=== PATIENT | male | born 1960 | race Caucasian/White ===

== ENCOUNTER → 2018-03-24 | Day surgery (SDC) | payer MEDICARE ==
[~2018-03-24] MED LIST: BUPIVACAINE HCL 0.5 % INJ/PF 30 ML SDV ONE; LIDOCAINE 1% INJ-PF (10 MG/ML) 30 ML SDV ONE; METHYLPREDNISOLONE ACETATE INJ 40 MG/1 ML ML ONE
--- NOTE | 2018-03-24 15:40 | RADIOLOGY REPORT (SQ) ---
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 LIMITATIONS: None. PROCEDURE: SITE OF INJECTION: Left hip LOCALIZING CONTRAST TYPE AND DOSE: 1 mL of Isovue-300 was injected to confirm intra-articular needle placement MEDICATION TYPE AND DOSE: 80 mg of Depo-Medrol, 6 mL of 0.5% bupivacaine Using local anesthesia and sterile technique with fluoroscopic guidance, the needle was advanced into the joint. Iodinated contrast was injected to verify intraarticular placement. This was followed by therapeutic injection of the indicated medications. The needle was removed. There were no immediat e complications. Preprocedure pain level: 6/10. Postprocedure pain level: 2/10. IMPRESSION: THERAPEUTIC INJECTION OF THE left hip JOINT ABOVE. COMMENT: Patient medication list reviewed: Yes- Quality ID# [id number]:Eligible professional attests to doc umenting in the medical record they obtained, updated, or reviewed the patient's current medications. . Quality ID 145: Final reports for procedures using fluoroscopy that document radiation exposure terra cuate, or exposure time and number of fluorographic images (if radiation exposure indices are not avail able) TECHNICAL DOCUMENTATION: JOB ID: [id number] [employer]- All Rights Reserved Reading location - IP/workstation name: [email or web address]
--- NOTE | 2018-03-24 15:40 | RADIOLOGY REPORT (SQ) ---
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 LIMITATIONS: None. PROCEDURE: SITE OF INJECTION: Left hip LOCALIZING CONTRAST TYPE AND DOSE: 1 mL of Isovue-300 was injected to confirm intra-articular needle placement MEDICATION TYPE AND DOSE: 80 mg of Depo-Medrol, 6 mL of 0.5% bupivacaine Using local anesthesia and sterile technique with fluoroscopic guidance, the needle was advanced into the joint. Iodinated contrast was injected to verify intraarticular placement. This was followed by therapeutic injection of the indicated medications. The needle was removed. There were no immediat e complications. Preprocedure pain level: 6/10. Postprocedure pain level: 2/10. IMPRESSION: THERAPEUTIC INJECTION OF THE left hip JOINT ABOVE. COMMENT: Patient medication list reviewed: Yes- Quality ID# [id number]:Eligible professional attests to doc umenting in the medical record they obtained, updated, or reviewed the patient's current medications. . Quality ID 145: Final reports for procedures using fluoroscopy that document radiation exposure terra cuate, or exposure time and number of fluorographic images (if radiation exposure indices are not avail able) TECHNICAL DOCUMENTATION: JOB ID: [id number] [employer]- All Rights Reserved Reading location - IP/workstation name: [email or web address]
== END ==
LOC: RAD 13:15
PROVIDERS: ATTEND Orthopaedic Surgery
DX: M16.12 Unilateral primary osteoarthritis, left hip (principal)
CPT/HCPCS: 20610; 77002; J3490 ×2; J1020

== ENCOUNTER → 2018-06-23 | Outpatient (CLI) | payer MEDICARE ==
[~2018-06-23] MED LIST changes: -BUPIVACAINE HCL 0.5 % INJ/PF 30 ML SDV ONE; +DIAZEPAM 2 MG TABLET ONE; -LIDOCAINE 1% INJ-PF (10 MG/ML) 30 ML SDV ONE; -METHYLPREDNISOLONE ACETATE INJ 40 MG/1 ML ML ONE
== END ==
LOC: RAD 12:37
PROVIDERS: ATTEND Physician Assistant
DX: Z53.09 Procedure and treatment not carried out because of other contraindication (principal); F40.240 Claustrophobia
CPT/HCPCS: 82565; A9270; J3490

== ENCOUNTER 2019-07-15 15:09 | Emergency (ER) | payer MEDICARE ==
[2019-07-15] MEDS ORDERED: NORMAL SALINE 1000 ML 1,000 ML IV ONE ×2 (15:34→17:41)
--- NOTE | 2019-07-15 15:37 | ER Document Report ---
ED Medical Screen (RME) - General Chief Complaint: High Blood Sugar Stated Complaint: ABNORMAL LABS Time Seen by Provider: 07/15/19 15:27 Primary Care Provider: STEPHANIE LOPEZ PA-C [Primary Care Provider] - Follow up as needed Notes: Patient is a 58-year-old male who presents to the emergency department after going to his doctor's office and his blood sugar was greater than 700. He was sent to the emergency department. Patient states that he had been feeling sluggish and that is why he had his labs drawn. Patient has also had a cough for the past few days. Patient has a past medical history of musculoskeletal surgeries and a myocardial infarction with stent placement. Exam: Coarse right upper lobe lung sounds, cough noted, blood sugar high on Accu-Chek machine. I have greeted and performed a rapid initial assessment of this patient. A comprehensive ED assessment and evaluation of the patient, analysis of test results and completion of medical decision making process will be conducted by an additional ED providers. TRAVEL OUTSIDE OF THE [place] IN LAST 30 DAYS: No - Related Data Allergies/Adverse Reactions: No Known Allergies Allergy (Verified 07/15/19 15:28) Past Medical History - Social History Chew tobacco use (# tins/day): No Frequency of alcohol use: None Drug Abuse: None Physical Exam - Vital signs Vitals: Temp Pulse Resp BP Pulse Ox 97.4 F 69 19 157/79 H 96 07/15/19 15:21 07/15/19 15:21 07/15/19 15:21 07/15/19 15:21 07/15/19 15:21 Course - Vital Signs Vital signs: Temp Pulse Resp BP Pulse Ox 97.4 F 69 19 157/79 H 96 07/15/19 15:21 07/15/19 15:21 07/15/19 15:21 07/15/19 15:21 07/15/19 15:21 Doctor's Discharge - Discharge Referrals: STEPHANIE LOPEZ PA-C [Primary Care Provider] - Follow up as needed
[2019-07-15 16:01] LABS: ABSOLUTE BASOPHILS # (AUTO) 0.1 10^3/uL (0.0-0.2); ABSOLUTE EOSINOPHILS # (AUTO) 0.1 10^3/uL (0.0-0.6); ABSOLUTE LYMPHOCYTES (AUTO) 1.8 10^3/uL (0.5-4.7); ABSOLUTE MONOCYTES (AUTO) 0.4 10^3/uL (0.1-1.4); ABSOLUTE NEUT (AUTO) 2.9 10^3/uL (1.7-8.2); BASOPHILS % (AUTO) 1.2 % (0-2); EOSINOPHILS % (AUTO) 2.3 % (0-6); HEMATOCRIT 42.8 % (37.9-51.0); HEMOGLOBIN 14.9 g/dL (13.5-17.0); LYMPHOCYTES % (AUTO) 34.8 % (13-45); MEAN CORPUSCULAR HGB CONC 34.7 g/dL (32.0-36.0); MEAN CORPUSCULAR VOLUME 90 fl (80-97); MONOCYTES % (AUTO) 7.1 % (3-13); PLATELET COUNT 102 10^3/uL (150-450); RED BLOOD COUNT 4.79 10^6/uL (4.35-5.55); RED CELL DISTRIBUTION WIDTH 12.8 % (11.5-14.0); SEGMENTED NEUTROPHILS % (AUTO) 54.6 % (42-78); TOTAL CELLS COUNTED % (AUTO) 100 %; WHITE BLOOD COUNT 5.3 10^3/uL (4.0-10.5)
[2019-07-15 16:04] LABS: APPEARANCE,URINE CLEAR; BILIRUBIN,URINE NEGATIVE (NEGATIVE); COLOR,URINE COLORLESS; GLUCOSE, URINE >=500 mg/dL (NEGATIVE); KETONES,URINE NEGATIVE (NEGATIVE); LEUKOCYTE ESTERASE,URINE NEGATIVE (NEGATIVE); NITRITE,URINE NEGATIVE (NEGATIVE); PROTEIN,URINE NEGATIVE (NEGATIVE); URINE SPECIFIC GRAVITY 1.031; UROBILINOGEN,URINE NEGATIVE mg/dL (<2.0)
--- NOTE | 2019-07-15 16:35 | RADIOLOGY REPORT (SQ) ---
EXAM DESCRIPTION: CHEST SINGLE VIEW COMPLETED DATE/TIME: 07/15/2019 4:18 pm REASON FOR STUDY: cough COMPARISON: None. EXAM PARAMETERS: NUMBER OF VIEWS: One view. TECHNIQUE: Single frontal radiographic view of the chest acquired. RADIATION DOSE: NA LIMITATIONS: None. FINDINGS: LUNGS AND PLEURA: No opacities, masses or pneumothorax. No pleural effusion. MEDIASTINUM AND HILAR STRUCTURES: No masses. Contour normal. HEART AND VASCULAR STRUCTURES: Heart normal in size. Normal vasculature. BONES: No acute findings. HARDWARE: None in the chest. OTHER: No other significant finding. IMPRESSION: NO ACUTE RADIOGRAPHIC FINDING IN THE CHEST. TECHNICAL DOCUMENTATION: JOB ID: [id number] [employer]- All Rights Reserved Reading location - IP/workstation name: [email or web address]
[2019-07-15 16:53] LABS: ALBUMIN 4.4 g/dL (3.5-5.0); ALKALINE PHOSPHATASE 99 U/L (38-126); ANION GAP 13 (5-19); ASPARTATE AMINO TRANSFERASE 57 U/L (17-59); BILIRUBIN,DIRECT 0.3 mg/dL (0.0-0.4); BILIRUBIN,TOTAL 0.7 mg/dL (0.2-1.3); BLOOD UREA NITROGEN 7 mg/dL (7-20); CALCIUM 9.6 mg/dL (8.4-10.2); CARBON DIOXIDE 28 mmol/L (22-30); CHLORIDE 96 mmol/L (98-107); CREATINE KINASE 51 U/L (55-170); TOTAL PROTEIN 7.2 g/dL (6.3-8.2)
[2019-07-15 17:05] LABS: GLUCOSE 630 mg/dL (75-110)
[2019-07-15 17:32] LABS: VENOUS BLOOD BASE EXCESS -2.6 mmol/L; VENOUS BLOOD HCO3 22.8 mmol/L (20-32); VENOUS BLOOD PCO2 41.6 mmHg (35-63); VENOUS BLOOD PH 7.36 (7.30-7.42)
--- NOTE | 2019-07-15 18:30 | EKG REPORT ---
SEVERITY:- ABNORMAL ECG - SINUS RHYTHM RIGHT BUNDLE BRANCH BLOCK INFERIOR INFARCT, AGE INDETERMINATE : Confirmed by: Santo Rai MD 15-Jul-2019 18:30:01
--- NOTE | 2019-07-15 18:30 | ER Document Report ---
ED General - General Chief Complaint: High Blood Sugar Stated Complaint: ABNORMAL LABS Time Seen by Provider: 07/15/19 15:27 Primary Care Provider: STEPHANIE LOPEZ PA-C [Primary Care Provider] - Follow up as needed Mode of Arrival: Ambulatory Information source: Patient Notes: Patient is a 58-year-old male presenting to the emergency department from his primary care provider's office with complaints of hyperglycemia. Patient does not have a history of diabetes that has been diagnosed. Patient reports he was seen at his doctor's office today for fatigue, increased thirst and increased urination. Patient reports they did labs and found his blood sugar to be 700. Patient reports that his primary care provider gave him 15 units of insulin glargine and 0.75 units of Trulicity prior to coming to the emergency department. He denies any recent illness to include nausea, vomiting, diarrhea or fever. TRAVEL OUTSIDE OF THE [place] IN LAST 30 DAYS: No - Related Data Allergies/Adverse Reactions: No Known Allergies Allergy (Verified 07/15/19 15:28) Past Medical History - General Information source: Patient - Social History Smoking Status: Never Smoker Chew tobacco use (# tins/day): No Frequency of alcohol use: None Drug Abuse: None Family History: Reviewed & Not Pertinent Patient has suicidal ideation: No Patient has homicidal ideation: No - Past Medical History Cardiac Medical History: Reports: Hx Coronary Artery Disease, Hx Hypertension Endocrine Medical History: Reports: Hx Diabetes Mellitus Type 2 - New 06/2019 Past Surgical History: Reports: Hx Cardiac Surgery - Stent placement - Immunizations Immunizations up to date: Yes Review of Systems - Review of Systems Constitutional: Malaise, Other - Polydipsia, polyuria, Weight loss EENT: No symptoms reported Cardiovascular: No symptoms reported Respiratory: No symptoms reported Gastrointestinal: No symptoms reported Genitourinary: No symptoms reported Male Genitourinary: No symptoms reported Musculoskeletal: No symptoms reported Skin: No symptoms reported Hematologic/Lymphatic: No symptoms reported Neurological/Psychological: No symptoms reported Physical Exam - Vital signs Vitals: Temp Pulse Resp BP Pulse Ox 97.4 F 69 19 157/79 H 96 07/15/19 15:21 07/15/19 15:21 07/15/19 15:21 07/15/19 15:21 07/15/19 15:21 - Notes Notes: PHYSICAL EXAMINATION: GENERAL: Well-appearing, well-nourished and in no acute distress. HEAD: Atraumatic, normocephalic. EYES: Pupils equal round and reactive to light, extraocular movements intact, sclera anicteric, conjunctiva are normal. ENT: Nares patent, oropharynx clear without exudates. Moist mucous membranes. NECK: Normal range of motion, supple without lymphadenopathy LUNGS: Breath sounds clear to auscultation bilaterally and equal. No wheezes rales or rhonchi. HEART: Regular rate and rhythm without murmurs ABDOMEN: Soft, nontender, nondistended abdomen. No guarding, no rebound. No masses appreciated. Musculoskeletal: Normal range of motion, no pitting or edema. No cyanosis. NEUROLOGICAL: Cranial nerves grossly intact. Normal speech, normal gait. Normal sensory, motor exams PSYCH: Normal mood, normal affect. SKIN: Warm, Dry, normal turgor, no rashes or lesions noted. Course - Re-evaluation Re-evalutation: Patient appears well, nontoxic is alert, oriented and answering all questions appropriately. His physical examination is unremarkable. He has not had any vomiting or recent illness. He presents from his doctor's office for new onset diabetes. Lab work-up was initiated. Patient does have elevated glucose however there is no evidence of diabetic ketoacidosis. He was given insulin by his primary care provider prior to coming to the emergency department which is why I did not give any additional insulin. He was given a 2 L fluid bolus which brought his blood sugar down from the 600s to the high 200s. He will be discharged home, he has an appointment tomorrow to follow-up with his primary care provider for diabetic teaching and to initiate all medications. The patient's emergency department workup and current diagnosis were explained to the patient and or family. Follow-up instructions were provided. Medications if prescribed were discussed. Instructions for when to return to the emergency department including specific worrisome symptoms were discussed with the patient and/or family. - Vital Signs Vital signs: Temp Pulse Resp BP Pulse Ox 97.4 F 69 10 L 151/85 H 99 07/15/19 15:21 07/15/19 15:21 07/15/19 19:01 07/15/19 19:01 07/15/19 19:01 - Laboratory Result Diagrams: 07/15/19 15:44 07/15/19 15:44 Laboratory results interpreted by me: 07/15/19 07/15/19 07/15/19 01:11 15:44 15:44 Plt Count 102 L Sodium 136.8 L Chloride 96 L Glucose 630 H* POC Glucose > 550 H* Hemoglobin A1c % Creatine Kinase 51 L Urine Glucose (UA) Urine Blood 07/15/19 07/15/19 07/15/19 15:44 15:44 18:59 Plt Count Sodium Chloride Glucose POC Glucose 342 H Hemoglobin A1c % 12.2 H Creatine Kinase Urine Glucose (UA) >=500 H Urine Blood SMALL H Discharge - Discharge Clinical Impression: Hyperglycemia, Polydipsia, Polyuria Condition: Stable Disposition: HOME, SELF-CARE Additional Instructions: You were seen in the emergency department today with concern for elevated blood sugar. We did a thorough evaluation here and while your blood sugar was elevated there was no evidence you are in any life-threatening danger. There was no evidence of diabetic ketoacidosis. You were given 2 L of IV fluids and your blood sugar did come down some. We did not give you any additional insulin as you had already received 2 types of insulin at your doctor's office. It is very important that you keep the follow-up for tomorrow with your primary care provider. They will need to start you on the appropriate diabetic medications and do diabetic teaching with you and your . Please return to the emergency department for any new or worsening symptoms. Referrals: STEPHANIE LOPEZ PA-C [Primary Care Provider] - Follow up as needed
[2019-07-15 19:15] VITALS: BP 151/85
== END 2019-07-15 19:36 | disposition home or self-care (01) ==
LOC: ER 15:09
DX: E11.65 Type 2 diabetes mellitus with hyperglycemia (principal); R63.1 Polydipsia; R35.8 Other polyuria; I25.10 Atherosclerotic heart disease of native coronary artery without angina pectoris; I10 Essential (primary) hypertension
CPT/HCPCS: 93005; 36415; 82553; 82962; 82550; 85025; 80053; 81001; 83036; 82803; 71045; 93010; J7030

== ENCOUNTER 2020-11-01 09:40 | Observation (INO) | payer MEDICARE ==
--- NOTE | 2020-11-01 10:22 | ER Document Report ---
ED Medical Screen (RME) - General Stated Complaint: CHEST PAIN Time Seen by Provider: 11/01/20 10:17 Primary Care Provider: STEPHANIE LOPEZ PA-C [Primary Care Provider] - Follow up as needed Mode of Arrival: Ambulatory Information source: Patient Notes: HPI; 60-year-old male past medical history significant for an FL with 4 stents presents to the emergency room complaining of worsening chest pain that has been intermittent since yesterday. Tried belching without relief. States pain is midsternal describes it as a pressure. No nausea, no vomiting, no diaphoresis. PE: Alert and oriented x3. Lungs: Clear to auscultation without rales, rhonchi, wheezes. Heart: Regular rate rhythm without murmurs, rubs, gallops. I have greeted and performed a rapid initial assessment of this patient. A comprehensive ED assessment and evaluation of the patient, analysis of test results and completion of the medical decision making process will be conducted by additional ED providers. I have specifically instructed the patient or family members with the patient to immediately return to any nursing staff should anything change in the patient's condition or with their chief complaint. TRAVEL OUTSIDE OF THE [place] IN LAST 30 DAYS: No - Related Data Allergies/Adverse Reactions: No Known Allergies Allergy (Verified 11/01/20 10:16) Past Medical History - Past Medical History Cardiac Medical History: Reports: Hx Coronary Artery Disease, Hx Hypertension Endocrine Medical History: Reports: Hx Diabetes Mellitus Type 2 - New 06/2019 Past Surgical History: Reports: Hx Cardiac Surgery - Stent placement - Immunizations Immunizations up to date: Yes Physical Exam - Vital signs Vitals: Temp Pulse Resp BP Pulse Ox 98.3 F 72 18 164/86 H 96 11/01/20 10:00 11/01/20 10:00 11/01/20 10:11/01/20 10:00 11/01/20 10:00 Course - Vital Signs Vital signs: Temp Pulse Resp BP Pulse Ox 98.3 F 72 18 164/86 H 96 11/01/20 10:00 11/01/20 10:00 11/01/20 10:00 11/01/20 10:00 11/01/20 10:00 Doctor's Discharge - Discharge Referrals: STEPHANIE LOPEZ PA-C [Primary Care Provider] - Follow up as needed
--- NOTE | 2020-11-01 11:43 | RADIOLOGY REPORT (SQ) ---
EXAM DESCRIPTION: CHEST SINGLE VIEW IMAGES COMPLETED DATE/TIME: 11/01/2020 10:18 am REASON FOR STUDY: chest pain COMPARISON: 07/15/2019 EXAM PARAMETERS: NUMBER OF VIEWS: One view. TECHNIQUE: Single frontal radiographic view of the chest acquired. RADIATION DOSE: NA LIMITATIONS: None. FINDINGS: LUNGS AND PLEURA: No opacities, masses or pneumothorax. No pleural effusion. MEDIASTINUM AND HILAR STRUCTURES: No masses. Contour normal. HEART AND VASCULAR STRUCTURES: Heart normal in size. Normal vasculature. BONES: No acute findings. HARDWARE: None in the chest. OTHER: No other significant finding. IMPRESSION: NO ACUTE RADIOGRAPHIC FINDING IN THE CHEST. TECHNICAL DOCUMENTATION: JOB ID: [id number] [employer]- All Rights Reserved Reading location - IP/workstation name: [id number]
[2020-11-01 11:47] LABS: ALBUMIN 4.1 g/dL (3.5-5.0); ALKALINE PHOSPHATASE 73 U/L (38-126); ANION GAP 6 (5-19); ASPARTATE AMINO TRANSFERASE 54 U/L (17-59); BILIRUBIN,DIRECT 0.2 mg/dL (0.0-0.4); BILIRUBIN,TOTAL 0.6 mg/dL (0.2-1.3); BLOOD UREA NITROGEN 11 mg/dL (7-20); CALCIUM 9.3 mg/dL (8.4-10.2); CARBON DIOXIDE 29 mmol/L (22-30); CHLORIDE 105 mmol/L (98-107); CREATINE KINASE 47 U/L (55-170); GLUCOSE 166 mg/dL (75-110); POTASSIUM 3.8 mmol/L (3.6-5.0); TOTAL PROTEIN 7.3 g/dL (6.3-8.2)
[2020-11-01 12:01] LABS: CREATINE KINASE MB 0.75 ng/mL (<4.55)
[2020-11-01 12:09] LABS: TROPONIN I < 0.012 ng/mL
--- NOTE | 2020-11-01 14:49 | ER Document Report ---
ED General - General Chief Complaint: Chest Pain Stated Complaint: CHEST PAIN Time Seen by Provider: 11/01/20 10:17 Mode of Arrival: Ambulatory TRAVEL OUTSIDE OF THE [place] IN LAST 30 DAYS: No - HPI Notes: Patient is a 60-year-old male who presents to emergency department for evalu ation of chest pain. He describes it as sharp. He states he woke yesterday with it. It was present for about a half an hour. He was able to belch and it improved. He says it is in the substernal and left lower chest. It does not radiate. He denies any associated shortness of breath, nausea, diaphoresis, near syncope. He does have a history of SD, he states that his SD felt like indigestion in the past, he is really unsure as to whether or not this feels similar. Patient has been taking medications as prescribed. He has an appointment with cardiology on the 18th of this month. He cannot tell me when his last stress test or heart catheterization wants. - Related Data Allergies/Adverse Reactions: No Known Allergies Allergy (Verified 11/01/20 11:42) Home Medications: lipitor, meloxicam,omeprazole -states he is on 13 different medications and cannot tell me any more of them Past Medical History - General Information source: Patient - Social History Smoking Status: Former Smoker Chew tobacco use (# tins/day): No Drug Abuse: None Family History: Reviewed & Not Pertinent - Past Medical History Cardiac Medical History: Reports: Hx Coronary Artery Disease, Hx Heart Attack, Hx Hypercholesterolemia, Hx Hypertension Endocrine Medical History: Reports: Hx Diabetes Mellitus Type 2 - New 06/2019 Musculoskeletal Medical History: Reports Hx Arthritis Past Surgical History: Reports: Hx Cardiac Surgery - Stent placement - Immunizations Immunizations up to date: Yes Review of Systems - Review of Systems Constitutional: No symptoms reported EENT: No symptoms reported Cardiovascular: See HPI Respiratory: No symptoms reported Gastrointestinal: See HPI Genitourinary: No symptoms reported Musculoskeletal: No symptoms reported Skin: No symptoms reported Neurological/Psychological: No symptoms reported Physical Exam - Vital signs Vitals: Temp Pulse Resp BP Pulse Ox 98.3 F 72 18 164/86 H 96 11/01/20 10:00 11/01/20 10:00 11/01/20 10:00 11/01/20 10:11/01/20 10:00 - Notes Notes: Vital signs reviewed, please refer to chart. Head is normocephalic, atraumatic. Pupils equal round, reactive to light. Neck is supple without meningismus. Heart is regular rate and rhythm. Lungs are clear to auscultation bilaterally. Abdomen is soft, nontender, normoactive bowel sounds throughout. Extremities without cyanosis, clubbing. Posterior calves are nontender. Peripheral pulses are equal. Skin is warm and dry. Patient is awake, alert, neurological exam is nonfocal. Course - Re-evaluation Re-evalutation: 11/01/20 14:48 Patient presents to the emergency department for evaluation. Laboratory investigations, EKG, imaging are as ordered. Patient is chest pain-free at the time of my evaluation. He states he had an episode of chest pain while here that lasted about 15 minutes, but belching seem to make it go away. I explained to the patient that he needs to notify us immediately if his pain returns and he voiced understanding. Otherwise, patient's cardiac enzymes revealed negative troponin x2. It turns out in regards to his CBC he is a "clump were" per the lab and another set will need to be redrawn. Patient does follow with [facility] cardiology. I will contact Dr. Powell for further guidance. 11/01/20 17:[address] Powell. He recommends that the [facility]. He asked that I contact internal medicine for admission, and that they contact him for more details in regards to this patient's history and further management. I spoke with Dr. Jordan, who will call Dr. Powell regarding this patient. Aspirin is ordered. 11/01/20 18:54 Patient remained stable. There are admission orders placed by the internal medicine team. - Vital Signs Vital signs: Temp Pulse Resp BP Pulse Ox 98.3 F 72 22 H 192/107 H 97 11/01/20 10:00 11/01/20 10:00 11/01/20 17:09 11/01/20 13:01 11/01/20 17:09 - Laboratory Results Result Diagrams: 11/01/20 15:42 11/01/20 11:20 Laboratory Results Interpreted: 11/01/20 11:20 Creatinine 0.48 L Glucose 166 H ALT 52 H Creatine Kinase 47 L Critical Laboratory Results Reviewed: No Critical Results - Radiology Results Radiology Results Interpreted: 11/01/20 14:49 Chest X-Ray 11/01/20 10:33 IMPRESSION: NO ACUTE RADIOGRAPHIC FINDING IN THE CHEST. Critical Radiology Results Reviewed: No Critical Results - EKG Interpretation by Me Additional EKG results interpreted by me: 11/01/20 18:54 Sinus mechanism with a rate of 62 bpm. Normal axis. Right bundle branch block. Nonspecific ST changes, but no acute changes concerning for ischemia or infarction. Discharge - Discharge Clinical Impression: Chest pain Qualifiers: Chest pain type: chest pain due to myocardial ischemia Ischemic chest pain type: other angina pectoris type Qualified Code(s): I20.8 - Other forms of angina pectoris Condition: Stable Disposition: ADMITTED OBSERVATION Admitting Provider: Jeri (Hospitalist) Unit Admitted: Telemetry
[2020-11-01 16:04] LABS: ABSOLUTE BASOPHILS # (AUTO) 0.1 10^3/uL (0.0-0.2); ABSOLUTE EOSINOPHILS # (AUTO) 0.2 10^3/uL (0.0-0.6); ABSOLUTE LYMPHOCYTES (AUTO) 2.4 10^3/uL (0.5-4.7); ABSOLUTE MONOCYTES (AUTO) 0.5 10^3/uL (0.1-1.4); ABSOLUTE NEUT (AUTO) 3.8 10^3/uL (1.7-8.2); BASOPHILS % (AUTO) 0.8 % (0-2); EOSINOPHILS % (AUTO) 2.5 % (0-6); HEMATOCRIT 40.1 % (37.9-51.0); HEMOGLOBIN 14.2 g/dL (13.5-17.0); LYMPHOCYTES % (AUTO) 34.5 % (13-45); MEAN CORPUSCULAR HEMOGLOBIN 30.9 pg (27.0-33.4); MEAN CORPUSCULAR HGB CONC 35.3 g/dL (32.0-36.0); MEAN CORPUSCULAR VOLUME 87 fl (80-97); MONOCYTES % (AUTO) 6.7 % (3-13); RED BLOOD COUNT 4.59 10^6/uL (4.35-5.55); RED CELL DISTRIBUTION WIDTH 13.1 % (11.5-14.0); SEGMENTED NEUTROPHILS % (AUTO) 55.5 % (42-78); TOTAL CELLS COUNTED % (AUTO) 100 %; WHITE BLOOD COUNT 6.9 10^3/uL (4.0-10.5)
[2020-11-01] MEDS ORDERED: ASPIRIN 81 MG TABLET, CHEWABLE PO ONE (17:13)
--- NOTE | 2020-11-01 17:46 | Progress Note ---
Provider Note Provider Note: I was contacted by the ER physician regarding this patient. He will be admitted for cardiac observation and stress test in the morning for risk stratification. The following is his last office note dated MAY 15: 59-year-old male with coronary artery disease status post inferior STEMI on 08/11/17 treated with 4 drug-eluting stents to the RCA and nonobstructive/small vessel disease in other vascular distributions, ischemic cardiomyopathy with an ejection fraction of 40-45% with inferior wall hypokinesis, hypertension, hyperlipidemia and marijuana use returns to the office for follow-up on coronary artery disease, ischemic myopathy, hypertension and hyperlipidemia. Since the prior visit the patient has remained hemodynamically stable and without ischemic or heart failure symptoms. He lost 6 pounds. He continues to be sedentary due to his significant back and pain. He was found to have a fusiform infrarenal abdominal aortic aneurysm measuring 4.5 cm x 4.2 cm that does not involve the iliac bifurcation and contains calcific plaque and a small aortic root aneurysm measuring 4.1 cm. He was seen by Dr. Octavio Hendrix a few weeks ago who recommended follow-up in 6 months and possible surgical repair when aneurysm reaches 5.0 cm. his nuclear stress test in September 2018 demonstrated a scar in the RCA distribution but no active ischemia. Allergies No Known Drug Allergies Current Meds 1. Aspirin 81 MG Oral Tablet Delayed Release; TAKE 1 TABLET DAILY 2. Atorvastatin Calcium 40 MG Oral Tablet; TAKE 1 TABLET BY MOUTH EVERY DAY 3. Benzonatate 200 MG Oral Capsule; TAKE ONE CAPSULE BY MOUTH THREE TIMES DAILY NEEDED FOR COUGH 4. Carvedilol 12.5 MG Oral Tablet; TAKE 1 TABLET BY MOUTH TWICE DAILY 5. Cetirizine HCl - 10 MG Oral Tablet; TAKE ONE TABLET BY MOUTH ONCE EVERY DAY DIRECTED FOR ALLERGY SYMPTOMS 6. Ezetimibe 10 MG Oral Tablet; TAKE 1 TABLET BY MOUTH ONCE DAILY 7. FORA Blood Glucose Test In Vitro Strip; TEST 3 TIMES DAILY 8. FORA D10 2-in-1 Monitor Device; USE DIRECTED 9. FORA Lancets; USE DIRECTED 10. FORA Lancing Device; USE DIRECTED 11. Lisinopril 10 MG Oral Tablet; TAKE 1 TABLET DAILY DIRECTED 12. Loratadine 10 MG Oral Tablet; TAKE 1 TABLET DAILY 13. Meloxicam 7.5 MG Oral Tablet; Take 1 tablet by mouth once daily 14. metFORMIN HCl ER 500 MG Oral Tablet Extended Release 24 Hour; TAKE 1 TABLET BY MOUTH DAILY DIRECTED 15. Methocarbamol 750 MG Oral Tablet; TAKE 1 TABLET TWICE DAILY PRN 16. Nitroglycerin 0.4 MG Sublingual Tablet Sublingual; DISSOLVE 1 TABLET UNDER TONGUE NEEDED FORCHEST PAIN EVERY 5 MINUTES UP TO 3 DOSES 17. Omeprazole 40 MG Oral Capsule Delayed Release; TAKE 1 CAPSULE BY MOUTH TWICE DAILY 18. OneTouch Verio In Vitro Strip; TEST BLOOD SUGAR 3 TIMES DAILY 19. Tresiba FlexTouch 100 UNIT/ML Subcutaneous Solution Pen-injector; INJECT 15 UNIT BEDTIME 20. Trulicity 0.75 MG/0.5ML Subcutaneous Solution Pen-injector; inject 0.75 mg weekly - SAMPLE GIVEN TO PATIENT 21. Xarelto 2.5 MG Oral Tablet; Take one tablet by mouth daily Active Problems 1. Arteriosclerosis of coronary artery (414.00) (I25.10) 2. Arthritis (716.90) (M19.90) 3. Back pain, lumbosacral (724.2,724.6) (M54.5) 4. Cardiomyopathy, ischemic (414.8) (I25.5) 5. Colonoscopy (Fiberoptic) Screening 6. Coronary artery disease (414.00) (I25.10) 7. Diabetes (250.00) (E11.9) 8. Encounter for long-term (current) use of medications (V58.69) (Z79.899) 9. Former smoker (V15.82) (Z87.891) 10. Gastrointestinal bleeding (578.9) (K92.2) 11. HTN (hypertension) (401.9) (I10) 12. Hyperlipidemia, mixed (272.2) (E78.2) 13. Left hip pain (719.45) (M25.552) 14. Multiple joint pain (719.49) (M25.50) 15. Polydipsia (783.5) (R63.1) 16. Polyuria (788.42) (R35.8) 17. Screening PSA (prostate specific antigen) (V76.44) (Z12.5) 18. Umbilical hernia (553.1) (K42.9) 19. Visit For: Pre-procedural Gastrointestinal Exam (V72.83) Surgical History 1. History of Knee Surgery Social History Former smoker (V15.82) (Z87.891) Marital History - Currently Never smoker Vitals Recorded: [id number] 12:18PM Height: 6 ft 2 in Weight: 239 lb BMI Calculated: 30.69 BSA Calculated: 2.34 Blood Pressure: 120 / 80, LUE, Sitting Physical Exam GENERAL: Pleasant and conversational. Oriented x3 with normal mood. Not in acute distress. Well groomed and well developed. HEENT: Normocephalic, atraumatic. Pupils equal. Sclerae anicteric. Oropharynx moist. NECK: No JVD. No carotid bruits. LUNGS: Clear to auscultation bilaterally. Normal respiratory effort without the use of accessory muscles or intercostal retractions. CARDIOVASCULAR: Regular rate and rhythm, normal S1 and S2 without murmurs, rubs, or gallops. PMI not displaced. EXTREMITIES: No edema, no cyanosis, no clubbing. +2 pulses femoral and pedal pulses bilaterally. SKIN: No lesions or rashes. MUSCULOSKELETAL: No chest tenderness to palpation. NEUROLOGIC: Nonfocal. No gross sensory or motor deficits bilateral upper or lower extremities. Results/Data Lexiscan nuclear stress test on 10/07/18: -Moderate left ventricular systolic dysfunction. -Inferior wall akinesis. -Moderate size scar in the inferior and inferoseptal wall segments consistent with infarct in the RCA distribution. Echocardiogram on 09/09/18: The left ventricle is normal in size. -Mild concentric LVH. -EF between 40 and 45%. -Grade 1 diastolic dysfunction. -Mild MAC without stenosis. -Trace MR, trace TR, trace PI. -Mild aortic root dilatation at 4.1 cm. Abdominal aorta duplex on 09/04/18: -Fusiform infrarenal abdominal aortic aneurysm measuring 4.5 cm x 4.2 cm. -Does not involve the iliac bifurcation and contains calcific plaque. LHC on 08/11/17: -Left main: 40% distal tapering. -LAD: Mild proximal and mid vessel diffuse disease. Small vessel distally with 60-70% stenosis. -D1: Medium size vessel. 80% proximal stenosis followed by 90% stenosis. -Left circumflex: Moderate diffuse disease in the proximal and mid portions. -OM1: Diffuse disease. Small vessel distally. The superior branch had a 90% ostial disease. The inferior branch had 50% ostial disease. -RCA: 100% occluded proximally--> 3.5 mm x 38 mm Xience CIRO to the distal RCA, 3.5 mm x 38 mm Xience CIRO to the mid RCA, 4.0 mm x 28 mm Xience CIRO to the proximal RCA, 2.25 mm x 15 mm Xience CIRO to the right PDA.. 1. Coronary artery disease: Status post inferior STEMI on 08/11/17 treated with 4 stents to the RCA and residual distal disease in the small LAD, 80-90% disease in a medium-sized D1 as well as 90% ostial disease in the superior branch of the OM 1 and 50% ostial disease in the inferior branch. The patient is functional class I without evidence of fluid overload or heart failure. He is on GDMT at this point. His LDL was at goal with normal LFTs in September 2019.. Recommendations: -Continue with current medical management. -Follow-up in a 12th months or sooner of any symptoms develop. 2. Ischemic cardiomyopathy: Ejection fraction of 40-45% on echocardiogram in August 2018. He is on GDMT. Recommendations: -Continue with current medical management for now. -Follow-up as scheduled. 3. Hypertension: His blood pressure is essentially at goal. Recommendations: -Low sodium/DASH diet. -Continue with current medical management. -Follow-up as scheduled. 4. Hyperlipidemia: His LDL is at goal at 69 as of September 2019. Recommendations: -Continue with current medical management for now. -Follow-up with primary care provider. 5. AAA/aortic root aneurysm: She is followed by Dr. Octavio Hendrix who, per the patient report, evaluated him a few months ago and recommended 6 months follow- up. Recommendations: -Continue to follow-up with vascular surgeon.
--- NOTE | 2020-11-01 18:31 | PDOC H&P ---
History of Present Illness Admission Date/PCP: EUN PAIGE MD History of Present Illness: TENNILLE SANTIAGO is a 60 year old male with a history of coronary artery disease with 4 stents, last stress test September 2018, ischemic cardiomyopathy with an EF of 40 to 45%, [id number] diabetes mellitus, hypertension, and obesity presents with chest pain. He said he had an episode of it yesterday that was relieved whenever he belched. He said he had onset of lower sternal chest pain that went both to the left and right of the midline without radiation. He describes it as a squeezing sensation. It lasted approximately 5 hours. It was not relieved with nitroglycerin. He said he was not being active when he felt it. It spontaneously resolved when he was in the ER after he had been there for a few hours. His EKG showed no signs of active ischemia. Chest x-ray was unremarkable. Troponins were negative x2. Cardiology was contacted and they decided that given his history we would need to do a stress test on him as an inpatient. Past Medical History Cardiac Medical History: Reports: Coronary Artery Disease, Myocardial Infarction, Hyperlipidema, Hypertension Endocrine Medical History: Reports: Diabetes Mellitus Type 2 - New 06/2019 Musculoskeltal Medical History: Reports: Arthritis Social History Smoking Status: Former Smoker Electronic Cigarette use?: No Family History Family History: Reviewed & Not Pertinent, CAD, DM, Hyperlipidemia, Hypertension Parental Family History Reviewed: Yes Children Family History Reviewed: Yes Sibling(s) Family History Reviewed.: Yes Medication/Allergy Home Medications: Ciprofloxacin HCl [Cipro 250 mg Tablet] 1 tab PO ASDIR 07/01/14 Clindamycin HCl [Cleocin 300 mg Capsule] 2 tab PO TID 07/01/14 Diazepam [Valium 5 mg Tablet] 5 mg PO QIDP PRN 07/01/14 Hydrocodone/Acetaminophen [[place] 5-325 mg Tablet] 1 tab PO ASDIR PRN 07/01/14 Hydrocodone/Acetaminophen [Vicodin 5-300 mg Tablet] 1 tab PO ASDIR 07/01/14 Naproxen Sodium [Aleve] 220 mg PO ASDIR PRN 07/01/14 Allergies/Adverse Reactions: No Known Allergies Allergy (Verified 11/01/20 11:42) Review of Systems All systems: reviewed and no additional remarkable complaints except as stated - All systems were reviewed and were negative except as noted in the HPI Physical Exam Vital Signs: Temp Pulse Resp BP Pulse Ox 98.3 F 72 22 H 192/107 H 97 11/01/20 10:00 11/01/20 10:00 11/01/20 17:09 11/01/20 13:01 11/01/20 17:09 Intake & Output 10/31/20 11/01/20 11/02/20 06:59 06:59 06:59 Weight 111.13 kg General appearance: PRESENT: no acute distress, cooperative, disheveled, obese Head exam: PRESENT: atraumatic, normocephalic Eye exam: PRESENT: conjunctival injection, nystagmus, scleral icterus. ABSENT: EOMI, PERRLA Ear exam: PRESENT: normal external ear exam Mouth exam: PRESENT: moist, neck supple Throat exam: ABSENT: post pharyngeal erythema Neck exam: PRESENT: full ROM. ABSENT: carotid bruit, JVD, lymphadenopathy, meningismus, tenderness, thyromegaly Respiratory exam: PRESENT: clear to auscultation jose eduardo, symmetrical, unlabored. ABSENT: accessory muscle use, chest wall tenderness, crackles, prolonged expiratory phas, rhonchi, tachypnea Cardiovascular exam: PRESENT: RRR, +S1, +S2 Pulses: PRESENT: normal carotid pulses Vascular exam: PRESENT: normal capillary refill GI/Abdominal exam: PRESENT: normal bowel sounds, soft. ABSENT: distended, guarding, rebound, tenderness Extremities exam: ABSENT: clubbing, pedal edema Musculoskeletal exam: PRESENT: ambulatory, normal inspection. ABSENT: deformity Neurological exam: PRESENT: alert, awake, oriented to person, oriented to place, oriented to time, oriented to situation, CN II-XII grossly intact. ABSENT: motor sensory deficit Psychiatric exam: PRESENT: appropriate affect, normal mood Skin exam: PRESENT: dry, warm Results Laboratory Results: 11/01/20 15:42 11/01/20 11:20 11/01/20 11/01/20 11/01/20 11:20 11:20 12:15 WBC Cancelled Cancelled RBC Cancelled Cancelled Hgb Cancelled Cancelled Hct Cancelled Cancelled MCV Cancelled Cancelled MCH Cancelled Cancelled MCHC Cancelled Cancelled RDW Cancelled Cancelled Plt Count Cancelled Cancelled Seg Neutrophils % Cancelled Cancelled Sodium 139.7 Potassium 3.8 Chloride 105 Carbon Dioxide 29 Anion Gap 6 BUN 11 Creatinine 0.48 L Est GFR ( Amer) > 60 Glucose 166 H Calcium 9.3 Total Bilirubin 0.6 AST 54 Alkaline Phosphatase 73 Total Protein 7.3 Albumin 4.1 11/01/20 11/01/20 13:23 15:42 WBC Cancelled 6.9 RBC Cancelled 4.59 Hgb Cancelled 14.2 Hct Cancelled 40.1 MCV Cancelled 87 MCH Cancelled 30.9 MCHC Cancelled 35.3 RDW Cancelled 13.1 Plt Count Cancelled Seg Neutrophils % Cancelled 55.5 Sodium Potassium Chloride Carbon Dioxide Anion Gap BUN Creatinine Est GFR ( Amer) Glucose Calcium Total Bilirubin AST Alkaline Phosphatase Total Protein Albumin 11/01/20 11/01/20 11/01/20 11:20 11:20 13:23 Creatine Kinase 47 L CK-MB (CK-2) 0.75 Troponin I < 0.012 < 0.012 Impressions: Chest X-Ray 11/01/20 10:33 IMPRESSION: NO ACUTE RADIOGRAPHIC FINDING IN THE CHEST. Assessment and Plan - Diagnosis (1) Chest pain Qualifiers: Chest pain type: chest pain due to myocardial ischemia Ischemic chest pain type: other angina pectoris type Qualified Code(s): I20.8 - Other forms of angina pectoris Is this a current diagnosis for this admission?: Yes (2) Chronic systolic congestive heart failure, NYHA class 1 Is this a current diagnosis for this admission?: Yes (3) Hypertension Qualifiers: Hypertension type: essential hypertension Qualified Code(s): I10 - Essential (primary) hypertension Is this a current diagnosis for this admission?: Yes (4) Non-insulin dependent diabetes mellitus Is this a current diagnosis for this admission?: Yes (5) Hyperlipidemia Qualifiers: Hyperlipidemia type: other hyperlipidemia Qualified Code(s): E78.49 - Other hyperlipidemia; E78.4 - Other hyperlipidemia Is this a current diagnosis for this admission?: Yes (6) Obesity (BMI 30.0-34.9) Is this a current diagnosis for this admission?: Yes - Plan Summary Summary: We will continue his home medications. He is on a low-dose of Xarelto once a day which she says is very expensive, he does not know why he was taken off aspirin. He had been on Brilinta previously as well. We will trend his troponins and keep him on telemetry. N.p.o. after midnight for stress test in the morning. - Time Time Spent with patient: 35 or more minutes Anticipated Discharge Disposition: Home, Self Care Anticipated Discharge Timeframe: within 24 hours
[2020-11-01] MEDS ORDERED: ATORVASTATIN CALCIUM 80 MG TABLET PO SCH (22:00)
[2020-11-01] MEDS ORDERED: ACETAMINOPHEN 325 MG TABLET PO PRN (22:16)
--- NOTE | 2020-11-01 23:45 | EKG REPORT ---
SEVERITY:- ABNORMAL ECG - SINUS RHYTHM ATRIAL PREMATURE COMPLEX RIGHT BUNDLE BRANCH BLOCK INFERIOR INFARCT, AGE INDETERMINATE : Confirmed by: Xochilt Engel 01-Nov-2020 23:44:37
[2020-11-02 04:33] VITALS: BP 141/76
[2020-11-02 05:44] LABS: DIRECT LDL 56 mg/dL (<100)
[2020-11-02 05:47] LABS: ANION GAP 9 (5-19); BLOOD UREA NITROGEN 12 mg/dL (7-20); CALCIUM 9.5 mg/dL (8.4-10.2); CARBON DIOXIDE 26 mmol/L (22-30); CHLORIDE 104 mmol/L (98-107); CHOLESTEROL 104.45 mg/dL (0-200); GLUCOSE 176 mg/dL (75-110); POTASSIUM 3.4 mmol/L (3.6-5.0); TRIGLYCERIDES 137 mg/dL (<150)
[2020-11-02 08:30] LABS: HEMATOCRIT 40.4 % (37.9-51.0); HEMOGLOBIN 13.9 g/dL (13.5-17.0); MEAN CORPUSCULAR HGB CONC 34.5 g/dL (32.0-36.0); MEAN CORPUSCULAR VOLUME 87 fl (80-97); RED BLOOD COUNT 4.65 10^6/uL (4.35-5.55); RED CELL DISTRIBUTION WIDTH 13.2 % (11.5-14.0); WHITE BLOOD COUNT 5.8 10^3/uL (4.0-10.5)
[2020-11-02] MEDS ORDERED: ASPIRIN 325 MG TABLET PO SCH (10:00)
--- NOTE | 2020-11-02 10:48 | PDOC CONSULTATION ---
Consultation Consult Date: 11/02/20 Attending physician:: DEB SONG Provider Consulted: BRAD BHAKTA Consult reason:: Chest pain History of Present Illness Admission Date/PCP: 11/01/20 18:19 EUN PAIGE MD History of Present Illness: TENNILLE SANTIAGO is a 60 year old male with hx of coronary artery disease status post inferior STEMI on 08/11/17 treated with 4 drug-eluting stents to the RCA and nonobstructive/small vessel disease in other vascular distributions as described below, ischemic cardiomyopathy with an ejection fraction of 40-45% with inferior wall hypokinesis, hypertension, hyperlipidemia and marijuana who is consulted to our service for evaluation of chest pain. Upon entering the room the patient was fully dressed and wanting to go home however he allowed me to interview him. He describes his chest pain as dull pain, localized diffusely to the center of the chest, lasting anywhere from 15 to 20 minutes inconsistently alleviated by belching and motion of the upper torso. He denied associated shortness of breath, diaphoresis, palpitations, syncope and presyncope. Later on he had a more prolonged episode which prompted him to come to the emergency room. His cardiac enzymes had been normal. He had been set up for Lexiscan MPS this morning but he was fed breakfast. He continues to be sedentary due to his significant back and pain. Of note, he is known to have a fusiform infrarenal abdominal aortic aneurysm measuring 4.5 cm x 4.2 cm that does not involve the iliac bifurcation and contains calcific plaque and a small aortic root aneurysm measuring 4.1 cm. He is followed by Dr. Octavio Hendrix who recommended possible surgical repair when aneurysm reaches 5.0 cm. His nuclear stress test in September 2018 demonstrated a scar in the RCA distribution but no active ischemia. Physical exam on November 02, 2020: GENERAL: Pleasant and conversational. Oriented x3 with normal mood. Not in acute distress. Well groomed and well developed. HEENT: Normocephalic, atraumatic. Pupils equal. Sclerae anicteric. Orophar ynx moist. NECK: No JVD. No carotid bruits. LUNGS: Clear to auscultation bilaterally. Normal respiratory effort without the use of accessory muscles or intercostal retractions. CARDIOVASCULAR: Regular rate and rhythm, normal S1 and S2 without murmurs, rubs, or gallops. PMI not displaced. ABDOMEN: No masses or tenderness to palpation. No bruit. No splenomegaly or hepatomegaly. No abdominal aorta bruit noted. EXTREMITIES: No edema, no cyanosis, no clubbing. +2 pulses femoral and pedal pulses bilaterally. SKIN: No lesions or rashes. MUSCULOSKELETAL: No chest tenderness to palpation. NEUROLOGIC: Nonfocal. No gross sensory or motor deficits bilateral upper or lower extremities. Allergies No Known Drug Allergies Current Outopatient Meds 1. Aspirin 81 MG Oral Tablet Delayed Release; TAKE 1 TABLET DAILY 2. Atorvastatin Calcium 40 MG Oral Tablet; TAKE 1 TABLET BY MOUTH EVERY DAY 3. Benzonatate 200 MG Oral Capsule; TAKE ONE CAPSULE BY MOUTH THREE TIMES DAILY NEEDED FOR COUGH 4. Carvedilol 12.5 MG Oral Tablet; TAKE 1 TABLET BY MOUTH TWICE DAILY 5. Cetirizine HCl - 10 MG Oral Tablet; TAKE ONE TABLET BY MOUTH ONCE EVERY DAY DIRECTED FOR ALLERGY SYMPTOMS 6. Ezetimibe 10 MG Oral Tablet; TAKE 1 TABLET BY MOUTH ONCE DAILY 7. FORA Blood Glucose Test In Vitro Strip; TEST 3 TIMES DAILY 8. FORA D10 2-in-1 Monitor Device; USE DIRECTED 9. FORA Lancets; USE DIRECTED 10. FORA Lancing Device; USE DIRECTED 11. Lisinopril 10 MG Oral Tablet; TAKE 1 TABLET DAILY DIRECTED 12. Loratadine 10 MG Oral Tablet; TAKE 1 TABLET DAILY 13. Meloxicam 7.5 MG Oral Tablet; Take 1 tablet by mouth once daily 14. metFORMIN HCl ER 500 MG Oral Tablet Extended Release 24 Hour; TAKE 1 TABLET BY MOUTH DAILY DIRECTED 15. Methocarbamol 750 MG Oral Tablet; TAKE 1 TABLET TWICE DAILY PRN 16. Nitroglycerin 0.4 MG Sublingual Tablet Sublingual; DISSOLVE 1 TABLET UNDER TONGUE NEEDED FORCHEST PAIN EVERY 5 MINUTES UP TO 3 DOSES 17. Omeprazole 40 MG Oral Capsule Delayed Release; TAKE 1 CAPSULE BY MOUTH TWICE DAILY 18. OneTouch Verio In Vitro Strip; TEST BLOOD SUGAR 3 TIMES DAILY 19. Tresiba FlexTouch 100 UNIT/ML Subcutaneous Solution Pen-injector; INJECT 15 UNIT BEDTIME 20. Trulicity 0.75 MG/0.5ML Subcutaneous Solution Pen-injector; inject 0.75 mg weekly - SAMPLE GIVEN TO PATIENT 21. Xarelto 2.5 MG Oral Tablet; Take one tablet by mouth daily Physical Exam on 11/02/20: GENERAL: Pleasant and conversational. Oriented x3 with normal mood. Not in acute distress. Well groomed and well developed. HEENT: Normocephalic, atraumatic. Pupils equal. Sclerae anicteric. Oropharynx moist. NECK: No JVD. No carotid bruits. LUNGS: Clear to auscultation bilaterally. Normal respiratory effort without the use of accessory muscles or intercostal retractions. CARDIOVASCULAR: Regular rate and rhythm, normal S1 and S2 without murmurs, rubs, or gallops. PMI not displaced. EXTREMITIES: No edema, no cyanosis, no clubbing. +2 pulses femoral and pedal pulses bilaterally. SKIN: No lesions or rashes. MUSCULOSKELETAL: No chest tenderness to palpation. NEUROLOGIC: Nonfocal. No gross sensory or motor deficits bilateral upper or lower extremities. Results/Data Lexiscan nuclear stress test on 10/07/18: -Moderate left ventricular systolic dysfunction. -Inferior wall akinesis. -Moderate size scar in the inferior and inferoseptal wall segments consistent with infarct in the RCA distribution. Echocardiogram on 09/09/18: The left ventricle is normal in size. -Mild concentric LVH. -EF between 40 and 45%. -Grade 1 diastolic dysfunction. -Mild MAC without stenosis. -Trace MR, trace TR, trace PI. -Mild aortic root dilatation at 4.1 cm. Abdominal aorta duplex on 09/04/18: -Fusiform infrarenal abdominal aortic aneurysm measuring 4.5 cm x 4.2 cm. -Does not involve the iliac bifurcation and contains calcific plaque. LHC on 08/11/17: -Left main: 40% distal tapering. -LAD: Mild proximal and mid vessel diffuse disease. Small vessel distally with 60-70% stenosis. -D1: Medium size vessel. 80% proximal stenosis followed by 90% stenosis. -Left circumflex: Moderate diffuse disease in the proximal and mid portions. -OM1: Diffuse disease. Small vessel distally. The superior branch had a 90% ostial disease. The inferior branch had 50% ostial disease. -RCA: 100% occluded proximally--> 3.5 mm x 38 mm Xience CIRO to the distal RCA, 3.5 mm x 38 mm Xience CIRO to the mid RCA, 4.0 mm x 28 mm Xience CIRO to the proximal RCA, 2.25 mm x 15 mm Xience CIRO to the right PDA.. Past Medical History Cardiac Medical History: Reports: Coronary Artery Disease, Myocardial Infarction, Hyperlipidema, Hypertension Endocrine Medical History: Reports: Diabetes Mellitus Type 2 - New 06/2019 Musculoskeltal Medical History: Reports: Arthritis Psychiatric Medical History: Denies: Depression Social History Smoking Status: Former Smoker Electronic Cigarette use?: No Frequency of Alcohol Use: None Drugs: Marijuana Family History Family History: Reviewed & Not Pertinent Parental Family History Reviewed: Yes Children Family History Reviewed: Yes Sibling(s) Family History Reviewed.: Yes Medication/Allergy Home Medications: Atorvastatin Calcium [Lipitor 40 mg Tablet] 40 mg PO QHS 11/01/20 Carvedilol [Coreg 12.5 mg Tablet] 12.5 mg PO Q12 11/01/20 Cetirizine HCl [Zyrtec 10 mg Tablet] 10 mg PO DAILY 11/01/20 Ezetimibe [Zetia 10 mg Tablet] 10 mg PO DAILY 11/01/20 Lisinopril [Prinivil 10 mg Tablet] 10 mg PO DAILY 11/01/20 Meloxicam [Mobic 7.5 mg Tablet] 7.5 mg PO BID 11/01/20 Metformin HCl [Metformin HCl ER] 500 mg PO DAILY 11/01/20 Omeprazole 40 mg PO BID 11/01/20 Allergies/Adverse Reactions: No Known Allergies Allergy (Verified 11/01/20 11:42) Physical Exam Vital Signs: Temp Pulse Resp BP Pulse Ox 97.6 F 64 20 141/76 H 94 11/02/20 03:22 11/02/20 03:22 11/02/20 03:22 11/02/20 03:22 11/02/20 03:22 Intake & Output 11/01/20 11/02/20 11/03/20 06:59 06:59 06:59 Output Total 250 Balance -250 Weight 105.7 kg Results Laboratory Results: 11/02/20 04:00 11/02/20 04:00 11/01/20 11/01/20 11/01/20 11:20 11:20 12:15 WBC Cancelled Cancelled RBC Cancelled Cancelled Hgb Cancelled Cancelled Hct Cancelled Cancelled MCV Cancelled Cancelled MCH Cancelled Cancelled MCHC Cancelled Cancelled RDW Cancelled Cancelled Plt Count Cancelled Cancelled Seg Neutrophils % Cancelled Cancelled Sodium 139.7 Potassium 3.8 Chloride 105 Carbon Dioxide 29 Anion Gap 6 BUN 11 Creatinine 0.48 L Est GFR ( Amer) > 60 Glucose 166 H Calcium 9.3 Total Bilirubin 0.6 AST 54 Alkaline Phosphatase 73 Total Protein 7.3 Albumin 4.1 Triglycerides Cholesterol LDL Cholesterol Direct VLDL Cholesterol HDL Cholesterol 11/01/20 11/01/20 11/02/20 13:23 15:42 04:00 WBC Cancelled 6.9 Cancelled RBC Cancelled 4.59 Cancelled Hgb Cancelled 14.2 Cancelled Hct Cancelled 40.1 Cancelled MCV Cancelled 87 Cancelled MCH Cancelled 30.9 Cancelled MCHC Cancelled 35.3 Cancelled RDW Cancelled 13.1 Cancelled Plt Count Cancelled Cancelled Seg Neutrophils % Cancelled 55.5 Sodium Potassium Chloride Carbon Dioxide Anion Gap BUN Creatinine Est GFR ( Amer) Glucose Calcium Total Bilirubin AST Alkaline Phosphatase Total Protein Albumin Triglycerides Cholesterol LDL Cholesterol Direct VLDL Cholesterol HDL Cholesterol 11/02/20 04:00 WBC RBC Hgb Hct MCV MCH MCHC RDW Plt Count Seg Neutrophils % Sodium 139.2 Potassium 3.4 L Chloride 104 Carbon Dioxide 26 Anion Gap 9 BUN 12 Creatinine 0.44 L Est GFR ( Amer) > 60 Glucose 176 H Calcium 9.5 Total Bilirubin AST Alkaline Phosphatase Total Protein Albumin Triglycerides 137 Cholesterol 104.45 LDL Cholesterol Direct 56 VLDL Cholesterol 27.0 HDL Cholesterol 22 L 11/01/20 11/01/20 11/01/20 11:20 11:20 13:23 Creatine Kinase 47 L CK-MB (CK-2) 0.75 Troponin I < 0.012 < 0.012 11/01/20 11/02/20 21:52 04:00 Creatine Kinase CK-MB (CK-2) Troponin I < 0.012 < 0.012 Impressions: Chest X-Ray 11/01/20 10:33 IMPRESSION: NO ACUTE RADIOGRAPHIC FINDING IN THE CHEST. 11/02/20 08:07 11/02/20 04:00 MCV 87 fl (80-97) 11/02/20 08:07 MCH 30.0 pg (27.0-33.4) 11/02/20 08:07 MCHC 34.5 g/dL (32.0-36.0) 11/02/20 08:07 RDW 13.2 % (11.5-14.0) 11/02/20 08:07 Seg Neutrophils % 55.5 % (42-78) 11/01/20 15:42 Chloride 104 mmol/L (98-107) 11/02/20 04:00 Carbon Dioxide 26 mmol/L (22-30) 11/02/20 04:00 Anion Gap 9 (5-19) 11/02/20 04:00 Est GFR ( Amer) > 60 (>60) 11/02/20 04:00 Glucose 176 mg/dL (75-110) H 11/02/20 04:00 Calcium 9.5 mg/dL (8.4-10.2) 11/02/20 04:00 Total Bilirubin 0.6 mg/dL (0.2-1.3) 11/01/20 11:20 AST 54 U/L (17-59) 11/01/20 11:20 Alkaline Phosphatase 73 U/L (38-126) 11/01/20 11:20 Total Protein 7.3 g/dL (6.3-8.2) 11/01/20 11:20 Albumin 4.1 g/dL (3.5-5.0) 11/01/20 11:20 Triglycerides 137 mg/dL (<150) 11/02/20 04:00 Cholesterol 104.45 mg/dL (0-200) 11/02/20 04:00 LDL Cholesterol Direct 56 mg/dL (<100) 11/02/20 04:00 VLDL Cholesterol 27.0 mg/dL (10-31) 11/02/20 04:00 HDL Cholesterol 22 mg/dL (>40) L 11/02/20 04:00 11/01/20 11/01/20 11/01/20 11:20 11:20 13:23 Creatine Kinase 47 L CK-MB (CK-2) 0.75 Troponin I < 0.012 < 0.012 11/01/20 11/02/20 21:52 04:00 Creatine Kinase CK-MB (CK-2) Troponin I < 0.012 < 0.012 Current Medication List Discontinued Medications Generic Name Dose Route Start Last Admin Trade Name Freq PRN Reason Stop Dose Admin Acetaminophen 650 mg 11/01/20 22:16 11/01/20 22:49 Acetaminophen 325 Mg Tablet PO 02/05/21 22:15 650 mg Q4HP PRN Administration pain or fever Aspirin 324 mg 11/01/20 17:13 11/01/20 17:40 Aspirin 81 Mg Tablet, Chewable PO 11/01/20 17:14 324 mg NOW ONE Administration Aspirin 325 mg 11/02/20 10:00 11/02/20 10:19 Aspirin 325 Mg Tablet PO 12/02/20 09:59 325 mg DAILY ANDI Administration Atorvastatin Calcium 80 mg 11/01/20 22:00 11/01/20 22:09 Atorvastatin Calcium 80 Mg Tablet PO 12/01/20 21:59 80 mg QHS ANDI Administration Sodium Chloride 2.5 ml 11/01/20 22:00 11/02/20 06:20 Normal Saline Flush 2.5 Ml Disp.Syrin IV 12/01/20 21:59 Not Given Q8 ANDI Assessment & Plan - Diagnosis (1) CAD (coronary artery disease), [place] coronary artery Qualifiers: Associated angina: with unspecified angina Is this a current diagnosis for this admission?: Yes Plan: Status post inferior STEMI on 08/11/17 treated with 4 stents to the RCA and residual distal disease in the small LAD, 80-90% disease in a medium-sized D1 as well as 90% ostial disease in the superior branch of the OM 1 and 50% ostial disease in the inferior branch. The the patient's chest pain is set of atypical in nature however he has known residual disease as described above. Fortunately enough, his cardiac enzymes have been negative and he had been chest pain-free since admission. Upon further questioning, he also denied development of chest pain when he is physically active. Unfortunately, he is determined to go home today even though he was counseled to stay and proceed with stress testing tomorrow. He is just not happy with this facility and wants to leave no matter what. He agreed to proceed with stress test as an outpatient as soon as possible. Recommendations: -Unfortunately the patient is leaving AMA. -Outpatient stress test CLAUDIA, I will arrange for that. -Resume outpatient medications. -Sublingual nitroglycerin as instructed and call 911 if chest pain recurs. (2) Ischemic cardiomyopathy Is this a current diagnosis for this admission?: Yes Plan: Please see #1 above for recommendations. (3) Hypertension Qualifiers: Hypertension type: essential hypertension Qualified Code(s): I10 - Essential (primary) hypertension Is this a current diagnosis for this admission?: Yes Plan: His blood pressure had been above goal since admission. His outpatient me dications were not started upon admission. Recommendations: -Low sodium/DASH diet. -Re-start outpatient regimen. -Goal BP 130/80 or less. (4) Hyperlipidemia Qualifiers: Hyperlipidemia type: other hyperlipidemia Qualified Code(s): E78.49 - Other hyperlipidemia; E78.4 - Other hyperlipidemia Is this a current diagnosis for this admission?: Yes Plan: His LDL was at goal at 69 as of September 2019. Recommendations: -Continue with current medical management for now. -Follow-up with primary care provider. (5) AAA (abdominal aortic aneurysm) Qualifiers: Presence of rupture: without rupture Qualified Code(s): I71.4 - Abdominal aortic aneurysm, without rupture Is this a current diagnosis for this admission?: Yes Plan: AAA/aortic root aneurysm: He is followed by Dr. Octavio Hendrix who, per the patient report, evaluated him a few months ago and recommended 6 months follow- up. Recommendations: -Continue to follow-up with vascular surgeon. (6) Non-insulin dependent diabetes mellitus Is this a current diagnosis for this admission?: Yes Plan: Further management per hospitalist team.
--- NOTE | 2020-11-02 15:13 | Left Against Medical Advice ---
Against Medical Advice Admission Date/Time: 11/01/20 18:19 Primary Care Provider: EUN PAIGE MD Date of Patient Emigration: 11/02/20 - Diagnosis: (1) Chest pain Is this a current diagnosis for this admission?: Yes (2) Chronic systolic congestive heart failure, NYHA class 1 Is this a current diagnosis for this admission?: Yes (3) Hypertension Is this a current diagnosis for this admission?: Yes (4) Non-insulin dependent diabetes mellitus Is this a current diagnosis for this admission?: Yes (5) Hyperlipidemia Is this a current diagnosis for this admission?: Yes (6) Obesity (BMI 30.0-34.9) Is this a current diagnosis for this admission?: Yes - Summary: Summary: Please see Admission and Progress Notes as well. TENNILLE SANTIAGO is a 60 M, who LEFT AGAINST MEDICAL ADVICE. The Patient was admitted on 11/01/20 18:19. His troponins have been negative and he was due to have a stress test this morning but he ate breakfast despite the fact that he was told not to eat an ything after midnight order was placed for him to be n.p.o. after midnight last night. The stress test would have to have been rescheduled for tomorrow. The patient did not want to wait and so he left AGAINST MEDICAL ADVICE.
--- NOTE | 2020-11-02 23:57 | EKG REPORT ---
SEVERITY:- ABNORMAL ECG - SINUS RHYTHM FIRST DEGREE AV BLOCK IVCD, CONSIDER ATYPICAL RBBB INFERIOR INFARCT, AGE INDETERMINATE : Confirmed by: Xochilt Engel 02-Nov-2020 23:55:16
== END 2020-11-02 10:38 | disposition left against medical advice (07) ==
LOC: ER 09:40 → EH 18:19 → 5 23:08
PROVIDERS: ADMIT Family Medicine; ATTEND Family Medicine
DX: R07.9 Chest pain, unspecified (principal); I25.119 Atherosclerotic heart disease of native coronary artery with unspecified angina pectoris; I11.0 Hypertensive heart disease with heart failure; I50.22 Chronic systolic (congestive) heart failure; E11.9 Type 2 diabetes mellitus without complications; E66.9 Obesity, unspecified; I71.4 Abdominal aortic aneurysm, without rupture; I25.5 Ischemic cardiomyopathy; I25.2 Old myocardial infarction; E78.49 Other hyperlipidemia; M54.5 Low back pain; M19.90 Unspecified osteoarthritis, unspecified site; I45.10 Unspecified right bundle-branch block; Z79.82 Long term (current) use of aspirin; Z95.5 Presence of coronary angioplasty implant and graft; Z79.84 Long term (current) use of oral hypoglycemic drugs; Z68.34 Body mass index [BMI] 34.0-34.9, adult; Z87.891 Personal history of nicotine dependence; Z79.899 Other long term (current) drug therapy; Z82.49 Family history of ischemic heart disease and other diseases of the circulatory system; Z79.01 Long term (current) use of anticoagulants
CPT/HCPCS: 93005 ×2; 99285; 36415 ×2; 82553; 82550; 85025; 85027; 80048; 80053; 84484 ×2; 80061; 71045; 93010 ×2; G0378 ×3; A9270 ×4; J3490

== ENCOUNTER → 2020-11-06 | Outpatient (CLI) | payer MEDICARE ==
--- NOTE | 2020-11-06 14:13 | DRAGON STRESS TEST REPORT ---
Name: Stephen Trivedi : Aug Date of study: NOV 16 The patient underwent a stress/rest, single isotope SPECT Imaging with pharmacological stress and gated SPECT imaging on for evaluation of chest pain . The patient underwent infusion of regadnoson 0.4mg IV using the standard protocol. The heart rate was 65 beats per minute at baseline and increased to 99 beats during the infusion of regadenoson. The resting blood pressure was 144/82 mm/Hg and decreased to 136/73 mm/Hg, which is a normal response. The patient complained of no symptoms during the procedure. The resting electrocardiogram demonstrated NSR with NSSTTW changes. Stress electrocardiogram is non-diagnostic in the setting of pharmacological stress. Myocardial perfusion imaging was performed at rest following the injection of 14.2 mCi of sestamibi. At peak pharmacolgic effect, the patient was injected with 44.8 mCi of sestamibi. Gating post-stress tomographic imaging was performed 60 minutes after stress. Findings The overall quality of the study is excellent. Raw images demonstrate no significant artifacts. Left ventricular cavity is noted to be enlarged on the rest and stress studies. Resting SPECT images a large sized, of severe intensity extending throughout the whole inferior wall and a small part of the inferoseptal wall. The stress images a large sized, of severe intensity extending throughout the whole inferior wall and a small part of the inferoseptal wall. Gated SPECT imaging reveals no uptake in the inferior wall with mild global hypokinesis. The left ventricular ejection fraction was calculated to be 44% Impression -Myocardial perfusion imaging is abnormal. -The left ventricle is dilated. -There is no scintigraphic evidence of ischemia. -There is scintigraphic evidence of a prior infarct involving the inferior and part of the inferolateral segments. -Overall left ventricular systolic function was mildly decreased with a calculated LVSF of 44% with mild global hypokinesis. -When compared to a prior study report dated OCT 13, there is no significant change. MTDD
== END ==
LOC: RAD 07:02
PROVIDERS: ATTEND Internal Medicine Cardiovascular Disease
DX: R07.9 Chest pain, unspecified (principal); I25.10 Atherosclerotic heart disease of native coronary artery without angina pectoris
CPT/HCPCS: 93017; 78452; A9500; Q9969